=== PATIENT | female | born 1955 | race Caucasian/White ===

== ENCOUNTER → 2020-01-16 | Outpatient (REF) | payer BC | LOC: M LAB REF 12:26 | PROVIDERS: ATTEND Physician Assistant | DX: R30.0 Dysuria (principal) ==

== ENCOUNTER 2022-10-22 21:04 | Emergency (ER) | payer OTHER ==
[~2022-10-22] VITALS: Ht 149.9 cm; Wt 85.0 kg
[2022-10-22 21:06] VITALS: BP 137/81; TEMP 97; O2SAT 93
[2022-10-22] MEDS ORDERED: METO1TAB32 (21:12)
[2022-10-22] MEDS ORDERED: ATOR1TAB19 (21:12)
[2022-10-22] MEDS ORDERED: ALBU8.5H (21:12)
[2022-10-22] MEDS ORDERED: ALBU2.5V10 (21:12)
[2022-10-22] MEDS ORDERED: QUET100T2 (21:12)
[2022-10-22] MEDS ORDERED: BREO1INH3 (21:12)
[2022-10-23] MEDS ORDERED: ACETAMINOPHEN 500 MG TAB PO ONE (00:15)
== END 2022-10-23 00:55 | disposition home or self-care (01) ==
LOC: M ED 21:04
DX: S09.90XA Unspecified injury of head, initial encounter (principal); R51.9 Headache, unspecified; W22.8XXA Striking against or struck by other objects, initial encounter; Y93.E5 Activity, floor mopping and cleaning; Y99.0 Civilian activity done for income or pay; I10 Essential (primary) hypertension; J45.909 Unspecified asthma, uncomplicated; Z79.899 Other long term (current) drug therapy; Z88.0 Allergy status to penicillin

== ENCOUNTER → 2025-04-17 | Outpatient (REF) | payer MEDICARE, OTHER ==
[~2025-04-17] MED LIST: ALBU2.5V10; ALBU8.5H; ATOR1TAB19; BREO1INH3; METO1TAB32; QUET100T2
[2025-04-17 17:27] LABS: FREE T4 1.08 NG/DL (0.89-1.76)
== END ==
LOC: M LABDRWAD 16:40
PROVIDERS: ATTEND Nurse Practitioner Family
DX: R60.9 Edema, unspecified (principal); R00.0 Tachycardia, unspecified; R06.09 Other forms of dyspnea

== ENCOUNTER → 2025-05-02 | Outpatient (CLI) | payer MEDICARE | LOC: M EKG 10:32 | PROVIDERS: ATTEND Nurse Practitioner Family | DX: R00.0 Tachycardia, unspecified (principal) ==